=== PATIENT | male | born 1955 | race Two or more races ===

== ENCOUNTER 2024-07-05 11:09 | Emergency (ER) | payer OTHER, MEDICARE ==
[~2024-07-05] VITALS: Ht 167.6 cm; Wt 103.0 kg
[2024-07-05] MEDS ORDERED: HYDROCODONE/APAP 5/325MG TABLET ONE (13:00)
[2024-07-05] MEDS: HYDROCODONE/APAP 5/325MG TABLET PO ONE (13:09)
[2024-07-05] MEDS ORDERED: IBUP-1955 PO (13:19)
[2024-07-05 13:42] VITALS: BP 139/79; TEMP 98.3; O2SAT 100
== END 2024-07-05 13:43 | disposition home or self-care (01) ==
LOC: ER 11:11
DX: S52.502A Unspecified fracture of the lower end of left radius, initial encounter for closed fracture (principal); S46.911A Strain of unspecified muscle, fascia and tendon at shoulder and upper arm level, right arm, initial encounter; S73.101A Unspecified sprain of right hip, initial encounter; I10 Essential (primary) hypertension; E11.9 Type 2 diabetes mellitus without complications; V00.141A Fall from scooter (nonmotorized), initial encounter; Y93.89 Activity, other specified; Y92.89 Other specified places as the place of occurrence of the external cause; Y99.8 Other external cause status
CPT/HCPCS: 72170-TC; 73030-TC; 73110; 73502